=== PATIENT | female | born 1985 | race African-American/Black ===

== ENCOUNTER 2020-07-07 08:11 | Day surgery (SDC) | payer MEDICAID ==
[~2020-07-07 08:11] MED LIST: Lactated Ringers 1,000 ML IV SCH; Sodium Chloride 0.9% 10 ML Syringe FLUSH PRN
[2020-07-07] MEDS ORDERED: fentaNYL 100 MCG/2 ML SDV IV ONE (08:12)
[2020-07-07] MEDS ORDERED: Dexamethasone 4 MG/ML 5 ML MDV IVPUSH ONE (08:12)
[2020-07-07] MEDS ORDERED: Ondansetron 4 MG/2 ML SDV IVPUSH ONE (08:12)
[2020-07-07] MEDS ORDERED: Midazolam 1 MG/ML 2 ML SDV IV ONE (08:12)
[2020-07-07] MEDS ORDERED: Sugammadex Sodium 200 MG/2 ML VIAL IV ONE (08:12)
[2020-07-07] MEDS ORDERED: Labetalol 100 MG/20 ML MDV IV ONE (08:12)
[2020-07-07] MEDS ORDERED: Rocuronium 100 MG/10 ML MDV IV ONE (08:12)
[2020-07-07] MEDS ORDERED: Lidocaine 2% 5 ML SDV INJECT ONE (08:12)
[2020-07-07] MEDS ORDERED: Propofol 200 MG/20 ML SDV IV ONE (08:12)
[2020-07-07] MEDS: ceFAZolin 1 GM Vial IVPUSH ONE ×2 (09:09→09:10)
[2020-07-07] MEDS ORDERED: Bupivacaine 0.5% 30 ML SDV INJECT ONE (09:46)
[2020-07-07] MEDS ORDERED: Lidocaine 1% with EPINEPHrine 1:100,000 20 ML MDV INJECT ONE (09:46)
--- NOTE | 2020-07-07 10:20 | PCM.OPNOTE ---
- General Post-Op/Procedure Note Date of Surgery/Procedure: 07/07/20 Operative Procedure(s): ventral hernia repair with mesh Findings: 3 cm defect Pre Op Diagnosis: ventral hernia Post-Op Diagnosis: Same Anesthesia Technique: General ET Tube, Local (6 ml 1 % lido with epi/0.5% buvipicaine) Primary Surgeon: Blayne Hodgson Anesthesia Provider: Artemio Monreal Pathology: hernia sac EBL in mLs: 2 Complications: None Condition: Good Free Text/Narrative:: see dictation #[id number]
[2020-07-07] MEDS ORDERED: Acetaminophen/HYDROcodone 325-5 MG Tab PO ONE (11:04)
--- NOTE | 2020-07-07 12:19 | OR ---
DATE OF OPERATION: 07/07/2020 SURGEON: Blayne Hodgson MD PROCEDURE PERFORMED: Ventral hernia repair. PREOPERATIVE DIAGNOSIS: Ventral hernia which was located in the epigastrium. POSTOPERATIVE DIAGNOSIS: Ventral hernia which was located in the epigastrium. INDICATIONS FOR PROCEDURE: This is a 35-year-old black female who is referred with a ventral hernia located just above the umbilicus, recently became more prominent with her she delivered at the beginning of June and presents now for repair. INTRAOPERATIVE FINDINGS: There was a 3 cm defect identified. A small piece of omentum adhesed to the inside of the sac. This was repaired with a Ventralex XT hernia patch 8 cm in diameter, reference number [id number], expiration date 12/18/2021 with a lot number of [id number], and a total of 6 mL of 1:1 mixture of 1% lidocaine with epinephrine and 0.5% bupivacaine was used. DESCRIPTION OF OPERATION: After an excellent endotracheal anesthetic was administered, the patient was prepped and draped in usual sterile manner. The area around the incision was infiltrated with our local mixture and a field block. An incision was then carried out through the linea nigra which was very prominent on this patient. Sharp dissection was carried out dissecting the hernia sac free from the surrounding structures. The hernia sac was entered and a piece of adhesed omentum was dissected free and after inspecting to ensure there were no adhesions, was dropped back down into the abdomen. As there was no distinct fascial layer during her , we elected to use a piece of mesh, the 8 cm tailed hernia patch was selected, inserted into the patient's abdomen and brought up against the anterior abdominal wall. This was then tacked into position with several tacks circumferentially. The fascial defect then was closed with a running 0 Vicryl approximating the fascia and incorporating the mesh as we fixed the defect. The tails were then excised as we were closing the defect as well. The subcu fat was reapproximated using an interrupted 3-0 Vicryl. Due to the thin nature of the patient's skin, subcu suture closure was not possible when this wound was approximated with derek. Dressing was applied. Needle, sponge, and instrument counts were reported as correct. The patient was taken to recovery in good condition. /[id number] 1210 /MODL
== END 2020-07-07 12:17 | disposition home or self-care (01) ==
LOC: FB.SDS 08:11
PROVIDERS: ATTEND Surgery
DX: O99.893 Other specified diseases and conditions complicating puerperium (principal); K43.9 Ventral hernia without obstruction or gangrene; K66.0 Peritoneal adhesions (postprocedural) (postinfection); Z79.899 Other long term (current) drug therapy; Z98.890 Other specified postprocedural states
CPT/HCPCS: 49560; 49568; A9270; C1781; J0690; J1100; J2250; J2405; J2704; J3010; J3490; 00750-QZ

== ENCOUNTER 2024-08-27 02:18 | Emergency (ER) | payer MEDICAID, OTHER ==
[2024-08-27] MEDS: Acetaminophen 500 MG Tab PO ONE (03:10)
[2024-08-27] MEDS: Ibuprofen 800 MG Tab PO ONE (03:10)
== END 2024-08-27 03:20 | disposition home or self-care (01) ==
LOC: FB.ED 02:18
DX: S00.03XA Contusion of scalp, initial encounter (principal); F17.200 Nicotine dependence, unspecified, uncomplicated; Z79.899 Other long term (current) drug therapy; W01.198A Fall on same level from slipping, tripping and stumbling with subsequent striking against other object, initial encounter
CPT/HCPCS: 99283; A9270

== ENCOUNTER 2024-11-20 04:06 | Emergency (ER) | payer SELFPAY ==
[2024-11-20] MEDS ORDERED: Acetaminophen/HYDROcodone 325-5 MG Tab PO ONE (04:07)
[2024-11-20] MEDS ORDERED: Ketorolac 30 MG/ML SDV IM ONE (04:29)
== END 2024-11-20 05:47 | disposition home or self-care (01) ==
LOC: FB.ED 04:06
DX: M25.561 Pain in right knee (principal); F17.200 Nicotine dependence, unspecified, uncomplicated; Z79.899 Other long term (current) drug therapy
CPT/HCPCS: 73562-RT; 99283; A9270-GY